=== PATIENT | male | born 1945 | race Two or more races ===

== ENCOUNTER → 2023-10-17 | Outpatient (CLI) | payer MEDICARE, BC | LOC: M RAD 09:17 | PROVIDERS: ATTEND Pain Medicine Pain Medicine | DX: M54.50 Low back pain, unspecified (principal) ==

== ENCOUNTER → 2024-09-23 | Outpatient (CLI) | payer MEDICARE, BC | LOC: M PLARAD 13:18 | PROVIDERS: ATTEND Pain Medicine Pain Medicine | DX: M16.12 Unilateral primary osteoarthritis, left hip (principal) ==